=== PATIENT | female | born 1990 | race Caucasian/White ===

== ENCOUNTER 2020-06-20 10:31 | Emergency (ER) | payer MEDICAID ==
[~2020-06-20] VITALS: Ht 154.9 cm; Wt 45.5 kg
[2020-06-20 10:48] VITALS: Ht 154.9 cm; Wt 45.5 kg
[2020-06-20] MEDS ORDERED: OMEPRAZOLE20 M1 PO (10:49)
[2020-06-20] MEDS ORDERED: SINGULAIR10 MG PO (10:49)
[2020-06-20] MEDS ORDERED: HYDROCODON-ACE1 EAC7 PO (10:49)
[2020-06-20] MEDS ORDERED: ALBUTEROL INHALER (10:50)
[2020-06-20] MEDS ORDERED: SYMBICORT (10:50)
[2020-06-20 11:20] LABS: BASOPHILS 0.2 % (0-2); EOSINOPHILS 0.7 % (0-7); HEMATOCRIT 42.1 % (36.0-48.0); HEMOGLOBIN 14.1 g/dL (12-16); IMMATURE GRANULOCYTES 0.1 % (0-5); LYMPHOCYTES 20.9 % (15-50); MCH 29.3 pg (26.0-34.0); MCHC 33.5 g/dL (31.0-37.0); MCV 87.3 fL (80.0-100.0); MEAN PLATELET VOLUME 9.6 fL (7.4-10.4); MONOCYTES 5.2 % (2-11); NEUTROPHILS 72.9 % (40-80); PLATELET COUNT 320 10x3/uL (130-400); RBC 4.82 10x6/uL (4.00-5.40); RDW 13.4 % (11.5-14.5); WBC 8.1 10x3/uL (4.8-10.8)
[2020-06-20 11:23] LABS: CALC OSMOLALITY 277 mosm/kg (275-300); CALCIUM 9.3 mg/dL (8.5-10.1); CARBON DIOXIDE 25.2 mmol/L (21.0-32.0); CHLORIDE - SERUM 106 mmol/L (98-107); CREATININE - SERUM 0.7 mg/dL (0.6-1.3); GLUCOSE 103 mg/dL (74-106); POTASSIUM - SERUM 3.6 mmol/L (3.5-5.1); SODIUM 140 mmol/L (136-145); UREA NITROGEN 9 mg/dL (7-18); eGFR NON AFRICAN AMERICAN > 90 mL/min (90-120)
[2020-06-20 11:29] LABS: ALBUMIN 4.3 g/dL (3.4-5.0); ALKALINE PHOSPHATASE 70 U/L (30-120); ALT (SGPT) 18 U/L (10-68); BILIRUBIN - TOTAL 0.32 mg/dL (0.2-1.3); MAGNESIUM - SERUM 2.1 mg/dL (1.8-2.4); PROTEIN - SERUM 8.4 g/dL (6.4-8.2)
[2020-06-20 12:42] LABS: BILIRUBIN NEGATIVE (NEGATIVE); KETONE NEGATIVE (NEGATIVE); NITRITE NEGATIVE (NEGATIVE); UROBILINOGEN NORMAL mg/dL (< 2)
[2020-06-20 12:44] LABS: HCG URINE NEGATIVE (NEGATIVE)
[2020-06-20 12:52] LABS: UDS - AMPHET NEGATIVE QUAL (NEGATIVE); UDS - BARB NEGATIVE QUAL (NEGATIVE); UDS - BENZO NEGATIVE QUAL (NEGATIVE); UDS - COCAINE NEGATIVE QUAL (NEGATIVE); UDS - OPIATE POSITIVE QUAL (NEGATIVE); UDS - PCP NEGATIVE QUAL (NEGATIVE); UDS - THC POSITIVE QUAL (NEGATIVE)
[2020-06-20] MEDS ORDERED: ZOFRAN ODT4 MG/UDTAB PO (13:36)
[2020-06-20 14:50] VITALS: BP 124/77
== END 2020-06-20 14:51 | disposition home or self-care (01) ==
LOC: D.ER 10:31
PROVIDERS: Family Medicine
DX: R11.0 Nausea (principal); F10.129 Alcohol abuse with intoxication, unspecified; K29.20 Alcoholic gastritis without bleeding; R11.10 Vomiting, unspecified; J45.909 Unspecified asthma, uncomplicated

== ENCOUNTER 2020-06-25 07:32 | Day surgery (SDC) | payer MEDICAID ==
[~2020-06-25] VITALS: Ht 154.9 cm; Wt 46.8 kg
[~2020-06-25 07:32] MED LIST: ALBUTEROL INHALER; HYDROCODON-ACE1 EAC7 PO; OMEPRAZOLE20 M1 PO; SINGULAIR10 MG PO; SYMBICORT; ZOFRAN ODT4 MG/UDTAB PO
[2020-06-25 08:40] LABS: HEMATOCRIT 41.8 % (36.0-48.0); HEMOGLOBIN 13.9 g/dL (12-16); MCH 29.3 pg (26.0-34.0); MCHC 33.3 g/dL (31.0-37.0); MCV 88.2 fL (80.0-100.0); MEAN PLATELET VOLUME 10.1 fL (7.4-10.4); RBC 4.74 10x6/uL (4.00-5.40); RDW 13.3 % (11.5-14.5); WBC 5.3 10x3/uL (4.8-10.8)
[2020-06-25 09:18] VITALS: Ht 154.9 cm; Wt 46.8 kg
--- NOTE | 2020-06-25 15:54 | NUR ---
1036 IV DC'D. CATHETER TIP INTACT. NO BLEEDING AT SITE. BANDAID APPLIED. 1055 DISCHARGE INSTRUCTIONS REVIEWED WITH PT. QUESTIONS ANSWERED. PT VOICES UNDERSTANDING OF INSTRUCTIONS.
--- NOTE | 2020-06-26 08:39 | OP ---
PATIENT NAME: LEXA RIGGS MEDICAL RECORD: [id number] :91 LOCATION:[facility] ADMISSION DATE: SURGEON: DAVID RIOS DO DATE OF OPERATION: 06/25/2020 PROCEDURE: EGD with biopsies. INDICATIONS: Epigastric pain, GERD, nausea. SCOPE: Olympus video gastroscope. MEDICATIONS: Propofol 200 mg IV per anesthesia. ESTIMATED BLOOD LOSS: Minimal. COMPLICATIONS: None. FINDINGS AND DESCRIPTION OF PROCEDURE: Informed consent was given. The patient was made comfortable with the above medication. After reaching an adequate level of sedation by slow IV push, the patient was placed on her left side. The endoscope was advanced under direct visualization through the mouth to the second portion of the duodenum with ease. The esophagus appeared normal throughout its entirety as well as the GE junction without obvious signs of reflux esophagitis. The endoscope was advanced beyond the GE junction into the stomach where a moderate to large amount of fluid retention was seen. The fluid was suctioned from the stomach. The endoscope was retroflexed to view the cardia and fundus, which appeared normal. Throughout the body of the stomach as well as the antrum and prepyloric region, there was some erythema and granularity consistent with gastritis. There were a couple of very superficial linear ulcerations in the antral region, which were not bleeding. Cold forceps biopsies were taken from the antrum and incisura to submit for histopathology and to rule out the presence of H. pylori. The endoscope was advanced beyond the pylorus into the duodenum, which appeared normal to the second portion. The endoscope was then withdrawn from the patient. The patient tolerated the procedure well and there were no complications. IMPRESSION: 1. Gastritis. 2. Few very small superficial linear ulcerations in the antral region. 3. Fluid retention, which suggest gastroparesis along with the patient's clinical symptoms. PLAN AND RECOMMENDATIONS: 1. Discharge home when recovery parameters are met. 2. Follow up biopsy specimen results. 3. GERD diet and reflux precautions. 4. Increase omeprazole to 40 mg daily. 5. Gastric emptying scan to evaluate upper digestive symptoms. 6. We will consider a right upper quadrant ultrasound and PIPIDA scan pending results of gastric emptying scan. The patient's symptoms are consistent with gastroparesis and this will be evaluated first. TRANSINT:[id number] Voice Confirmation ID: [id number] DOCUMENT ID: [id number] OPERATIVE REPORT [id number] LEXA RIGGS,DAVID Barbour DO at 0839 CC: [id number] DICTATION DATE: 06/25/2045 WORK ADJUSTMENT INSTRUCTOR: 06/25/20 1542 [facility] 06/25/20 [facility] [address] [id number]
== END 2020-06-25 11:00 | disposition home or self-care (01) ==
LOC: D.OPS 07:32
PROVIDERS: Anesthesiology; ATTEND Internal Medicine Gastroenterology
DX: R10.13 Epigastric pain (principal); K21.9 Gastro-esophageal reflux disease without esophagitis; R11.0 Nausea; K29.70 Gastritis, unspecified, without bleeding; K92.1 Melena; R10.31 Right lower quadrant pain

== ENCOUNTER 2020-11-29 12:15 | Day surgery (SDC) | payer BC ==
[~2020-11-29] VITALS: Ht 154.9 cm; Wt 45.5 kg
[2020-11-29 12:35] LABS: HEMATOCRIT 41.6 % (36.0-48.0); HEMOGLOBIN 13.9 g/dL (12-16); MCH 28.7 pg (26.0-34.0); MCHC 33.4 g/dL (31.0-37.0); MEAN PLATELET VOLUME 9.2 fL (7.4-10.4); RBC 4.84 10x6/uL (4.00-5.40); RDW 13.8 % (11.5-14.5); WBC 6.2 10x3/uL (4.8-10.8)
[2020-11-29 12:47] LABS: HCG SERUM NEGATIVE (NEGATIVE)
[2020-11-29 12:57] VITALS: Ht 154.9 cm; Wt 45.5 kg
--- NOTE | 2020-11-29 15:07 | NUR ---
1452 DR. RIOS ROUNDS 1500 ASSISSTED UP TO BR VOIDS AND PASSES FLATUS.
--- NOTE | 2020-11-29 17:16 | OP ---
PATIENT NAME: LEXA RIGGS MEDICAL RECORD: [id number] :91 LOCATION:[facility] ADMISSION DATE: SURGEON: DAVID RIOS DO DATE OF OPERATION: 11/29/2020 PROCEDURE: Colonoscopy with biopsies and stool collection. INDICATION FOR PROCEDURE: Hematochezia, lower abdominal pain, nausea. SCOPE: Olympus video pediatric colonoscope. MEDICATION: Propofol 230 mg IV per anesthesia. WITHDRAWAL TIME: 8 minutes. ESTIMATED BLOOD LOSS: Minimal. COMPLICATIONS: None. FINDINGS: Informed consent was given. The patient was made comfortable with the above medication. After reaching an adequate level of sedation by slow IV push, the patient was placed on the left side. A digital rectal examination was performed and it was normal. The endoscope was advanced under direct visualization through the rectum to the cecum, confirmed by the presence of the appendiceal orifice and ileocecal valve. The endoscope was slowly withdrawn, and the mucosa was carefully examined. The prep quality was good. There were no polyps visualized on today's examination. The mucosa appeared normal throughout the entire colon. Random biopsies were taken and stool specimen was collected to submit for infectious studies. Retroflexion could not be completed in the rectum due to a shallow rectal vault. Slow withdrawal was performed while the mucosa of the rectum was evaluated. There was some friability there, but no large hemorrhoids or other abnormalities were seen. The endoscope was withdrawn from the patient. The patient tolerated the procedure well and there were no complications. IMPRESSION: Normal colonoscopy to cecum. PLAN AND RECOMMENDATIONS: 1. Discharge home when recovery parameters are met. 2. Follow up biopsy specimen results and stool studies. 3. Continue current medications. 4. Trial of dicyclomine 20 mg t.i.d. p.r.n. loose stools or abdominal pain and cramping. 5. Follow up in GI clinic in 4-6 weeks. 6. Okay to continue PPI therapy for reflux symptoms. TRANSINT:[id number] Voice Confirmation ID: [id number] DOCUMENT ID: [id number] OPERATIVE REPORT [id number] LEXA RIGGS DAVID RIOS DO at 1719 CC: [id number] DICTATION DATE: 11/29/20 1446 FRUIT LOADER: 11/29/20 1702 [facility] 11/29/[address] [facility] [address] [facility] [place] [address]
== END 2020-11-29 15:25 | disposition home or self-care (01) ==
LOC: D.OPS 12:15
PROVIDERS: Anesthesiology; ATTEND Internal Medicine Gastroenterology
DX: K92.1 Melena (principal); R10.30 Lower abdominal pain, unspecified; R11.0 Nausea; R10.813 Right lower quadrant abdominal tenderness; F12.90 Cannabis use, unspecified, uncomplicated; R68.81 Early satiety; R14.0 Abdominal distension (gaseous)

== ENCOUNTER → 2021-01-19 12:13 | Outpatient (CLI) | payer BC ==
[2020-11-29 12:57] VITALS: BMI 18.9
[2021-01-19 12:48] LABS: AMYLASE - SERUM 63 U/L (25-115); LIPASE 89 U/L (73-393)
== END | disposition home or self-care (01) ==
LOC: D.LAB 12:13
PROVIDERS: ATTEND Family Medicine
DX: R11.0 Nausea (principal); K21.9 Gastro-esophageal reflux disease without esophagitis

== ENCOUNTER 2021-02-08 11:00 | Outpatient (CLI) | payer MEDICAID ==
[2020-11-29 12:57] VITALS: BMI 18.9
== END 2021-02-08 11:30 | disposition home or self-care (01) ==
LOC: D.MAMMO 11:00
PROVIDERS: ATTEND Family Medicine
DX: N64.4 Mastodynia (principal)